=== PATIENT | female | born 1965 | race Caucasian/White ===

== ENCOUNTER 2016-08-01 10:10 | Emergency (ER) | payer SELFPAY ==
--- NOTE | 2016-08-05 21:38 | ER ---
ADMIT: 08/01/2016 RM/LOC: ER [facility] MR#: [id number] [facility] [place], [place] [id number] JOSE A ALMANZAR [address] [place] [address] Emergency Room Report SEX: F AGE: 50 : 1965 DATE: 08/01/2016 CHIEF COMPLAINT: Sore throat, shortness of breath, and loss of voice. HISTORY OF PRESENT ILLNESS: This is a pleasant 50-year-old female, who presents to the ER for evaluation of a myriad of symptoms. The patient states for the past 4 days she has been working in a horse barn and has noticed increasing shortness of breath, sore throat, and loss of her voice. The patient states she has had some associated fever measured subjectively as well as chills. Admits to sore throat and difficulty swallowing. Also, states she has had cough and some rhinorrhea for the past 4 days. Denies any other sick contacts. Admits to some nausea and shortness of breath. PAST MEDICAL HISTORY: No past medical history of any cardiac or pulmonary issues. She did not receive the influenza vaccine, but has no known exposures. COURSE IN THE EMERGENCY ROOM: The patient was seen and examined. Vital signs were stable on admission. She was 97% on room air. She was afebrile and nontoxic. Exam was significant for some rhinorrhea and mucosal edema, and her hoarse muffled voice. Her lungs were clear without any wheezes, rhonchi, or respiratory distress. I did obtain a chest x-ray, which came back negative for any acute process. Basic labs were obtained showing white count 4.5, hemoglobin 13.1, hematocrit 39.3, and platelets 294. Basic metabolic panel; sodium 142, potassium 3.9, chloride 109, glucose 75, and creatinine 0.6. She was also given a shot of dexamethasone 10 mg IM prior to discharge. IMPRESSION: Laryngitis. DISPOSITION: I did discuss my findings on exam and lab and radiology results with the patient today consistent with laryngitis likely viral in etiology. She was encouraged to continue to readily increase her fluids, activity as tolerated, to continue her home medications. She was instructed to use Tylenol or Motrin for pain or fever, had to go home and rest for the rest of the day. She was provided a script for amoxicillin 500 mg b.i.d. for 7 days that she is to fill only if she fails to improve in the next several days. She can follow up with Dr. Smith with any concerns. Questions were sought and answered to the best of my abilities to the patient's satisfaction. She was discharged in stable condition. GAUTAM Joshi / Marciano Perez MD / dain JOB #: [id number] CC: Marciano Perez MD, Attending Physician UNKNOWN, Family Physician
== END 2016-08-01 13:30 | disposition home or self-care (01) ==
LOC: ER 10:10
DX: J04.0 Acute laryngitis (principal); F17.210 Nicotine dependence, cigarettes, uncomplicated; Z88.2 Allergy status to sulfonamides; Z79.899 Other long term (current) drug therapy